=== PATIENT | female | born 1945 ===

== ENCOUNTER 2016-07-24 06:05 | Day surgery (SDC) | payer MEDICARE ==
[2016-07-10 10:07] VITALS: BMI 25.4
[2016-07-24] MEDS ORDERED: Bupivacaine 0.5% Inj(30mL) ONE (07:33)
[2016-07-24] MEDS ORDERED: Lidocaine 1% Inj (20ml) ONE (07:33)
[2016-07-24] MEDS ORDERED: Propofol 10 mg/ml Inj (20 ML) ONE (07:47)
[2016-07-24] MEDS ORDERED: Midazolam 2 MG/2 ML VIAL ONE (07:47)
[2016-07-24] MEDS ORDERED: Lactated Ringer's 1,000 ML IV SCH (08:34)
[2016-07-24] MEDS ORDERED: Oxycodone/Acetaminophen 5/325 mg Tab PO PRN (08:38)
--- NOTE | 2016-07-24 08:42 | PCM.SURG1 ---
Surgeon's Initial Post Op Note - Surgeon's Notes Surgeon: Dr. Mora Assistant Art Director: Dr. Contreras PGY1 Type of Anesthesia: IV Sedation Pre-Operative Diagnosis: right breast skin lesion Operative Findings: see dictation; 3.5x1cm excision of R breast skin lesion Post-Operative Diagnosis: same Operation Performed: Right breast skin lesion excision Specimen/Specimens Removed: Right breast skin lesion Estimated Blood Loss: EBL {In ML}: 5 Blood Products Given: N/A Drains Used: No Drains Post-Op Condition: Good Date of Surgery/Procedure: 07/24/16 Time of Surgery/Procedure: 07:50
[2016-07-24 09:41] VITALS: RESP 16
--- NOTE | 2016-07-24 09:47 | OP ---
PROCEDURE DATE: 07/24/2016 PREOPERATIVE DIAGNOSIS: Right breast skin lesion. POSTOPERATIVE DIAGNOSIS: Right breast skin lesion. PROCEDURE PERFORMED: Excision of right breast lesion. SURGEON: Dr. Mora. PACKAGING MECHANIC: Dr. Contreras. ANESTHESIOLOGIST: Dr. Mensah. ANESTHESIA: MAC and local anesthesia. ESTIMATED BLOOD LOSS: Minimal. SPECIMEN: Right breast skin lesion. INDICATION: The patient is a 70-year-old female with history of an infected wound on the right breas t, which subsequently healed and re-opened again at about 3 months period of time. At this point, a decision was made to proceed with excision of the entire lesion with the underlying tissue. DESCRIPTION OF PROCEDURE: The patient was brought to the operating room and placed on the operating table in supine position. The patient was connected to EKG, blood pressure and pulse oximeter monito rs. The patient then underwent general MAC anesthesia, was prepped and draped in usual sterile fashi on. First, a standard timeout procedure took place and everybody in the room agreed to the patient's iden tity, diagnosis and procedure to be performed. Using lidocaine mixed with Marcaine, the area of the incision was infiltrated and careful incision wa s made around the lesion. The lesion measured about 3.8 cm x 1.5 cm. Once the entire lesion was inc ised around it, the wound was carried through subcutaneous fat down to the breast tissue in order to excise the underlying fat. Once this was done, the wound was copiously irrigated. All the bleeding points were cauterized and the wound was closed in layers using 3-0 Vicryl for deep dermal layer and 4-0 Monocryl for skin. Sterile Dermabond dressing was applied to the wound. The patient tolerated t he procedure well and there were no complications. The patient was awakened and transferred to the ecovery room for further observation. Andrea Mora MD cc: [id number] TT: 07/24/2016 09:46:37 jn
[2016-07-24 10:00] VITALS: BP 130/75; PULSE 75; TEMP 98.1; O2SAT 97
== END 2016-07-24 10:15 | disposition home or self-care (01) ==
LOC: SDS 06:05
PROVIDERS: ATTEND General Practice
DX: L90.5 Scar conditions and fibrosis of skin (principal); I10 Essential (primary) hypertension
CPT/HCPCS: 11404; 88305; J0690; J2001; J2250; J2704; J3010; J7120 ×2

== ENCOUNTER 2017-08-20 14:23 | Emergency (ER) | payer MEDICARE ==
[2017-08-20 14:47] VITALS: BMI 26.2
[2017-08-20] MEDS ORDERED: DiphenhydrAMINE 50 mg/ml Inj IVP STA (14:50)
[2017-08-20] MEDS ORDERED: Sodium Chloride 0.9% 1,000 ML IV ONE (14:50)
[2017-08-20 14:55] VITALS: RESP 18; TEMP 98.2
[2017-08-20 15:28] LABS: BASO # 0.04 K/mm3 (0.0-2.0); BASO % 0.6 % (0.0-3.0); EOS # 0.1 (0.0-0.7); EOS % 2.2 % (1.5-5.0); GRAN # 3.89 (1.4-6.5); HEMOGLOBIN 14.4 g/dL (12.0-16.0); LYMPH # 1.9 (1.2-3.4); LYMPH % 29.6 % (22.0-35.0); MEAN CELL VOLUME 89.7 fl (80.0-105.0); MEAN CORPUSCULAR HEMOGLOBIN 30.9 pg (25.0-35.0); MEAN CORPUSCULAR HGB CONC 34.4 g/dl (31.0-37.0); MEAN PLATELET VOLUME 9.7 fl (7.0-11.0); MONO # 0.4 (0.1-0.6); MONO % 5.6 % (1.0-6.0); RBC 4.66 10^6/uL (3.5-6.1); RED CELL DISTRIBUTION WIDTH 12.5 % (11.5-14.5); WHITE BLOOD COUNT 6.3 10^3/ul (4.5-11.0)
[2017-08-20 15:41] LABS: ALB/GLOB RATIO 1.4 (1.1-1.8); ALBUMIN 4.6 g/dL (3.0-4.8); ALT/SGPT 54 U/L (7-56); AST/SGOT 37 U/L (14-36); BLOOD UREA NITROGEN 14 mg/dL (7-21); CALCIUM 9.8 mg/dL (8.4-10.5); GFR AFRICAN-AMERICAN > 60; GFR NON-AFRICAN AMERICAN 55; HDL CHOLESTEROL 41 mg/dL (29-60)
[2017-08-20 15:52] LABS: LDL CHOLESTEROL 94 mg/dL (0-129); TROPONIN I < 0.01 ng/mL
[2017-08-20 15:53] LABS: INR 0.94 (0.93-1.08); PARTIAL THROMBOPLASTIN TIME 27.1 Seconds (25.1-36.5); PROTHROMBIN TIME 10.7 SECONDS (9.4-12.5)
--- NOTE | 2017-08-20 16:39 | ED PDOC ---
Arrival/HPI - General Chief Complaint: Headache Time Seen by Provider: 08/20/17 14:28 Historian: Patient - History of Present Illness Narrative History of Present Illness (Text): 08/20/17 17:11 71yo female with past medical history of hypercholestrol, hypertension who present with complaint of right sided headache x 3days. Notes that the pain is radiating from her neck to her head. Describes the headache as :buzzing in her head". Reports history of this headache in the past. States she was seen by a Neurologist then and told after exam that is unknown cause. Denies nuchal ridgity, focal weakness, visual changes, photophobia, nausea, vomiting, dizziness, nausea, vomiting, chest pain, fever,chills, trauma, any other complaint. Past Medical History - Provider Review Nursing Documentation Reviewed: Yes - Infectious Disease Hx of Infectious Diseases: None - Cardiac Hx Hypertension: Yes Hx Pacemaker: No - Neurological Hx Paralysis: No - Hematological/Oncological Hx Blood Transfusions: No - Musculoskeletal/Rheumatological Hx Musculoskeletal Disorders: Yes (OSTEOPENIA) - Psychiatric Hx Substance Use: No - Surgical History Other/Comment: L & R breast cyst/ abscess - Anesthesia Hx Anesthesia: Yes Hx Anesthesia Reactions: No Hx Malignant Hyperthermia: No Family/Social History - Physician Review Nursing Documentation Reviewed: Yes Family/Social History: Unknown Family HX Smoking Status: Never Smoked Hx Alcohol Use: No Hx Substance Use: No Allergies/Home Meds Allergies/Adverse Reactions: Allergies No Known Allergies Allergy (Unverified 07/01/13 10:51) Home Medications: Home Meds Medication Instructions Recorded Confirmed Calcium Carbonate [Super Calcium] 600 mg PO BID 07/10/16 08/20/17 Cholecalciferol (Vitamin D3) 2,000 unit PO DAILY 07/10/16 08/20/17 [Vitamin D3] Clonazepam [Klonopin] 1 mg PO HS 07/10/16 08/20/17 Glucosamine Sulfate Dipot Chlr 1,200 mg PO DAILY 07/10/16 08/20/17 [Glucosamine] Lisinopril [Zestril] 10 mg PO DAILY 07/10/16 08/20/17 Multivitamin/Iron/Folic Acid 1 tab PO DAILY 07/10/16 08/20/17 [Centrum] Rosuvastatin Calcium [Crestor] 10 mg PO QPM 07/10/16 08/20/17 Ultram 1 tab PO Q6H PRN 07/24/16 08/20/17 Review of Systems - Physician Review All systems were reviewed & negative as marked: Yes - Review of Systems Constitutional: Normal Eyes: Normal ENT: Normal Respiratory: Normal Cardiovascular: Normal Gastrointestinal: Normal Genitourinary Female: Normal Musculoskeletal: Neck Pain Skin: Normal Neurological: Headache. absent: Dizziness, Focal Weakness, Gait Changes, Speech Changes, Facial Droop Endocrine: Normal Hemo/Lymphatic: Normal Psychiatric: Normal Physical Exam Vital Signs Reviewed: Yes Vital Signs Temp Pulse Resp BP Pulse Ox 08/20/17 17:54 78 18 147/87 95 08/20/17 16:30 77 18 154/92 H 96 08/20/17 14:24 98.2 F 84 18 166/98 H 95 Temperature: Afebrile Blood Pressure: Normal Pulse: Regular Respiratory Rate: Normal Appearance: Positive for: Well-Appearing, Non-Toxic, Comfortable Pain Distress: None Mental Status: Positive for: Alert and Oriented X 3 - Systems Exam Head: Present: Atraumatic, Normocephalic Pupils: Present: PERRL Extroacular Muscles: Present: EOMI Conjunctiva: Present: Normal Ears: Present: Normal, NORMAL TM. No: Erythema, TM Bulging Mouth: Present: Moist Mucous Membranes Neck: Present: Normal Range of Motion, Paraspinal Tenderness (OVer right trapezius muscle). No: Meningeal Signs, MIDLINE TENDERNESS Respiratory/Chest: Present: Clear to Auscultation, Good Air Exchange. No: Respiratory Distress, Accessory Muscle Use Cardiovascular: Present: Regular Rate and Rhythm, Normal S1, S2. No: Murmurs Abdomen: No: Tenderness, Distention, Peritoneal Signs Back: Present: Normal Inspection Upper Extremity: Present: Normal Inspection. No: Cyanosis, Edema Lower Extremity: Present: Normal Inspection. No: Edema Neurological: Present: GCS=15, CN II-XII Intact, Speech Normal, Motor Func Grossly Intact, Normal Sensory Function, Normal Cerebellar Funct, Norm Deep Tendon Reflexes, Gait Normal, Memory Normal, Normal 2Pt Descrimination, Other ( No focal neurological deficit) Skin: Present: Warm, Dry, Normal Color. No: Rashes Psychiatric: Present: Alert, Oriented x 3, Normal Insight, Normal Concentration Medical Decision Making ED Course and Treatment: 08/20/17 19:55 PT in emergency department for stated history. She had no nuchal ridigity in emergency department . She was neurological intact. Ambulatory. Her lab was unremarkable with the exception of the elevated cholesterol/ triglyceride. Pt is on medication secondary to her history of HCL Head CT - Negative Pt was treated with Benadryl, Tylenol and Valium in emergency department . On re evaluation she notes that her symptoms resolved secondary to the medication. She was smiling. She was DC home with Valium for the neck pain and fioricet for her headache. She was referred to her PMD/Neuro. - Lab Interpretations Lab Results: 08/20/17 15:22 08/20/17 15:22 Lab Results 08/20/17 15:22: Sodium 145, Potassium 4.3, Chloride 107, Carbon Dioxide 25, Anion Gap 17, BUN 14, Creatinine 1.0, Est GFR ( Amer) > 60, Est GFR (Non- Af Amer) 55, Random Glucose 117 H, Calcium 9.8, Total Bilirubin 0.9, AST 37 H, ALT 54, Alkaline Phosphatase 104, Lactate Dehydrogenase 594, Total Creatine Kinase 73, Troponin I < 0.01, Total Protein 8.0, Albumin 4.6, Globulin 3.4, Albumin/Globulin Ratio 1.4, Triglycerides 485 H, Cholesterol 278 H, LDL Cholesterol Direct 94, HDL Cholesterol 41 08/20/17 15:22: PT 10.7, INR 0.94, APTT 27.1 08/20/17 15:22: WBC 6.3, RBC 4.66, Hgb 14.4, Hct 41.8, MCV 89.7, MCH 30.9, MCHC 34.4, RDW 12.5, Plt Count 287, MPV 9.7, Gran % 62.0, Lymph % (Auto) 29.6, Cooke % (Auto) 5.6, Eos % (Auto) 2.2, Baso % (Auto) 0.6, Gran # 3.89, Lymph # (Auto) 1.9, [place]oke # (Auto) 0.4, Eos # (Auto) 0.1, Baso # (Auto) 0.04 - RAD Interpretation Radiology Orders: 08/20/17 14:51 HEAD W/O CONTRAST [CT] Stat - Medication Orders Current Medication Orders: Discontinued Medications Acetaminophen (Tylenol 325mg Tab) 975 mg PO STAT STA Stop: 08/20/17 14:52 Last Admin: 08/20/17 15:16 Dose: 975 mg MAR Pain/Vitals Document 08/20/17 15:16 GMD (Rec: 08/20/17 15:16 GMD [id number]) Pain Reassessment Is This A Pain ReAssessment? No Re-Assess: MAR Pain/Vitals Document 08/20/17 16:16 GMD (Rec: 08/20/17 16:41 GMD [id number]) Pain Reassessment Is This A Pain ReAssessment? Yes Presence of Pain Presence of Pain Yes Pain Scale Used Pain Scale Used Numeric Location Intensity 6 Diazepam (Valium) 5 mg PO ONCE ONE PRN Reason: Protocol Stop: 08/20/17 16:39 Last Admin: 08/20/17 16:45 Dose: 5 mg Diphenhydramine HCl (Benadryl) 25 mg IVP STAT STA Stop: 08/20/17 14:51 Last Admin: 08/20/17 15:16 Dose: 25 mg IVP Administration Document 08/20/17 15:16 GMD (Rec: 08/20/17 15:16 GMD [id number]) Charges for Administration # of IVP Administrations 1 Sodium Chloride (Sodium Chloride 0.9%) 1,000 mls @ 250 mls/hr IV .Q4H ONE Stop: 08/20/17 18:49 Last Admin: 08/20/17 15:16 Dose: 250 mls/hr eMAR Start Stop Document 08/20/17 15:16 GMD (Rec: 08/20/17 15:17 GMD [id number]) Intravenous Solution Start Date 08/20/17 Start Time 15:16 End Date 08/20/17 End time 19:16 Total Infusion Time 240 Disposition/Present on Arrival - Present on Arrival Any Indicators Present on Arrival: No History of DVT/PE: No History of Uncontrolled Diabetes: No Urinary Catheter: No History of Decub. Ulcer: No History Surgical Site Infection Following: None - Disposition Have Diagnosis and Disposition been Completed?: Yes Diagnosis: Headache, Neck pain Disposition: HOME/ ROUTINE Disposition Time: 17:45 Patient Plan: Discharge Condition: STABLE Discharge Instructions (ExitCare): Headache, Adult, Neck Pain Additional Instructions: Follow up with your Doctor/Neurologist Return to emergency department for any new or worsening symptoms Prescriptions: Acetaminophen/Butalbital/Caf [Fioricet] 1 tab PO Q4 #15 tab Diazepam [Valium] 2 mg PO BID #10 tablet Referrals: Salena Solorzano MD [Primary Care Provider] - Follow up with primary Forms: [employer] (German)
--- NOTE | 2017-08-20 16:54 | CT ---
PROCEDURE: CT HEAD WITHOUT CONTRAST. HISTORY: headache COMPARISON: None available. TECHNIQUE: Axial computed tomography images were obtained through the head/brain without intravenous contrast. Radiation dose: Total exam DLP = 764.65 mGy-cm. This CT exam was performed using one or more of the following dose reduction techniques: Automated exposure control, adjustment of the mA and/or kV according to patient size, and/or use of iterative reconstruction technique. FINDINGS: HEMORRHAGE: No intracranial hemorrhage. BRAIN: Normal alba-white matter differentiation and density are appreciated throughout the cerebrum and cerebellum with the brainstem appearing unremarkable as well. There is no mass effect. There is no suspicious extra-axial fluid collection and the midline brain anatomy appears diffusely unremarkable. VENTRICLES: Unremarkable. No hydrocephalus. CALVARIUM: Unremarkable. PARANASAL SINUSES: Unremarkable as visualized. No significant inflammatory changes. MASTOID AIR CELLS: Unremarkable as visualized. No inflammatory changes. OTHER FINDINGS: None. IMPRESSION: Unremarkable noncontrast head CT examination.
[2017-08-20 17:54] VITALS: BP 147/87; PULSE 78; O2SAT 95
== END 2017-08-20 18:02 | disposition home or self-care (01) ==
LOC: ED 14:23
DX: M54.2 Cervicalgia (principal); R51 Headache; I10 Essential (primary) hypertension; E78.00 Pure hypercholesterolemia, unspecified
CPT/HCPCS: 70450; 80053; 80061; 82550; 83615; 84484; 85025; 85610; 85730; 96361; 96374; 99285; J1200; J7030

== ENCOUNTER 2017-12-19 12:45 | Observation (INO) | payer MEDICARE ==
[2017-12-19 13:19] VITALS: BMI 26.4
--- NOTE | 2017-12-19 13:33 | ED PDOC ---
Arrival/HPI - General Chief Complaint: Shortness Of Breath Time Seen by Provider: 12/19/17 13:15 Historian: Patient, Spouse - History of Present Illness Narrative History of Present Illness (Text): 12/19/17 14:01 A 72 year old female, whose past medical history includes hypertension and hyperlipidemia, presents to the emergency department complaining of trouble breathing and palpitations since 4 days ago. Patient reports she went to her doctor's office earlier today where her measured heart rate was 125 bpm and she was urged to go to the emergency room. Patient reports experiencing pressure on her chest and shortness of breath. Patient denies taking any medication for symptoms. Patient reports taking nortriptyline, hydrochlorothiazide, crestor, lisinopril, and lorazepam. Patient notes no history of blood clots and has a family history of heart problems from her father's side. Patient denies any fever, chills, chest pain, diarrhea, nausea, vomiting, urinary symptoms, back pain, neck pain, headache, dizziness, or any other complaints. PMD: Dr. Lee Time/Duration: Other (4 days ) Symptom Onset: Gradual Symptom Course: Unchanged Quality: Pressure Activities at Onset: Light Context: Home Past Medical History - Provider Review Nursing Documentation Reviewed: Yes - Infectious Disease Hx of Infectious Diseases: None - Cardiac Hx Cardiac Disorders: Yes Hx Hypertension: Yes - Pulmonary Hx Respiratory Disorders: No - Neurological Hx Neurological Disorder: No - HEENT Hx HEENT Disorder: No - Renal Hx Renal Disorder: No - Endocrine/Metabolic Hx Endocrine Disorders: No - Hematological/Oncological Hx Blood Disorders: No - Integumentary Hx Dermatological Disorder: No - Musculoskeletal/Rheumatological Hx Musculoskeletal Disorders: Yes (OSTEOPENIA) - Gastrointestinal Hx Gastrointestinal Disorders: No - Genitourinary/Gynecological Hx Genitourinary Disorders: No - Psychiatric Hx Psychophysiologic Disorder: No Hx Substance Use: No - Surgical History Other/Comment: L & R breast cyst/ abscess - Anesthesia Hx Anesthesia: Yes Hx Anesthesia Reactions: No Hx Malignant Hyperthermia: No Family/Social History - Physician Review Nursing Documentation Reviewed: Yes Family/Social History: Unknown Family HX Smoking Status: Never Smoked Hx Alcohol Use: No Hx Substance Use: No Allergies/Home Meds Allergies/Adverse Reactions: Allergies No Known Allergies Allergy (Unverified 07/01/13 10:51) Home Medications: Home Meds Medication Instructions Recorded Confirmed Calcium Carbonate [Super Calcium] 600 mg PO BID 07/10/16 12/19/17 Cholecalciferol (Vitamin D3) 2,000 unit PO DAILY 07/10/16 12/19/17 [Vitamin D3] Clonazepam [Klonopin] 1 mg PO HS 07/10/16 12/19/17 Glucosamine Sulfate Dipot Chlr 1,200 mg PO DAILY 07/10/16 12/19/17 [Glucosamine] Lisinopril [Zestril] 20 mg PO DAILY 07/10/16 12/19/17 Multivitamin/Iron/Folic Acid 1 tab PO DAILY 07/10/16 12/19/17 [Centrum] Rosuvastatin Calcium [Crestor] 10 mg PO QPM 07/10/16 12/19/17 Hydrochlorothiazide [Microzide] 12.5 mg PO DAILY 12/19/17 12/19/17 Nortriptyline [Pamelor] 20 mg PO HS 12/19/17 12/19/17 Review of Systems - Physician Review All systems were reviewed & negative as marked: Yes - Review of Systems Constitutional: absent: Fevers, Night Sweats Respiratory: SOB Cardiovascular: Palpitations. absent: Chest Pain Gastrointestinal: absent: Diarrhea, Nausea, Vomiting Genitourinary Female: absent: Urine Output Changes Musculoskeletal: absent: Back Pain, Neck Pain Neurological: absent: Headache, Dizziness Physical Exam Vital Signs Reviewed: Yes Vital Signs Temp Pulse Resp BP Pulse Ox 12/19/17 13:18 98.2 F 110 H 16 139/97 H 97 Temperature: Afebrile Blood Pressure: Hypertensive Pulse: Tachycardic Respiratory Rate: Normal Appearance: Positive for: Well-Appearing, Non-Toxic, Comfortable Pain Distress: None Mental Status: Positive for: Alert and Oriented X 3 - Systems Exam Head: Present: Atraumatic, Normocephalic Pupils: Present: PERRL Extroacular Muscles: Present: EOMI Conjunctiva: Present: Normal Mouth: Present: Moist Mucous Membranes Neck: Present: Normal Range of Motion Respiratory/Chest: Present: Clear to Auscultation, Good Air Exchange. No: Respiratory Distress, Accessory Muscle Use Cardiovascular: Present: Regular Rate and Rhythm, Normal S1, S2. No: Murmurs Abdomen: No: Tenderness, Distention, Peritoneal Signs Back: Present: Normal Inspection Upper Extremity: Present: Normal Inspection. No: Cyanosis, Edema Lower Extremity: Present: Normal Inspection. No: Edema Neurological: Present: GCS=15, CN II-XII Intact, Speech Normal Skin: Present: Warm, Dry, Normal Color. No: Rashes Psychiatric: Present: Alert, Oriented x 3, Normal Insight, Normal Concentration Medical Decision Making ED Course and Treatment: 12/19/17 13:30 Impression: 72 year old female presenting to the emergency department complaining of palpitations. Plan: -- EKG -- Labs -- CBC -- D Dimer -- Chest X-ray -- Reassess and disposition Prior Visits: Notes and results from previous visits were reviewed. Patient was last seen in the emergency department on 08/20/17 for right sided headache and was discharged when symptoms improved. Progress Notes: EKG: Ordered, reviewed, and independently interpreted the EKG. Rate : 99 BPM Rhythm : NSR Interpretation : No stemi, no [id number], Flipped T wave lead 3. 12/19/17 15:36 Labs largely unremarkable: low pretest wells- dimer negative given CP and palpitations, moderate heart score will likely require obs for echo / stress 12/19/17 15:44 Procedure: Chest X-ray Impression: No acute infiltrate. Dictator: Jayme Muse MD 12/19/17 16:00 appreciate consult w/ Chris Dewitt To be admitted to her service for obs, further eval. 12/19/17 17:10 - Scribe Statement The provider has reviewed the documentation as recorded by the Zoie Weaver All medical record entries made by the Scribe were at my direction and personally dictated by me. I have reviewed the chart and agree that the record accurately reflects my personal performance of the history, physical exam, medical decision making, and the department course for this patient. I have also personally directed, reviewed, and agree with the discharge instructions and disposition. Disposition/Present on Arrival - Present on Arrival Any Indicators Present on Arrival: No History of DVT/PE: No History of Uncontrolled Diabetes: No Urinary Catheter: No History of Decub. Ulcer: No History Surgical Site Infection Following: None - Disposition Have Diagnosis and Disposition been Completed?: Yes Diagnosis: Palpitations Disposition: HOSPITALIZED Disposition Time: 16:00 Patient Problems: Current Active Problems Problem Status Onset Palpitations Acute Condition: GOOD
[2017-12-19 15:01] LABS: BASO # 0.05 K/mm3 (0.0-2.0); BASO % 0.6 % (0.0-3.0); EOS # 0.2 (0.0-0.7); EOS % 2.3 % (1.5-5.0); GRAN # 5.23 (1.4-6.5); GRAN % 62.1 % (50.0-68.0); HEMOGLOBIN 15.9 g/dL (12.0-16.0); LYMPH # 2.3 (1.2-3.4); LYMPH % 27.4 % (22.0-35.0); MEAN CELL VOLUME 91.1 fl (80.0-105.0); MEAN CORPUSCULAR HEMOGLOBIN 30.9 pg (25.0-35.0); MEAN PLATELET VOLUME 10.1 fl (7.0-11.0); MONO # 0.6 (0.1-0.6); MONO % 7.6 % (1.0-6.0); RBC 5.14 10^6/uL (3.5-6.1); RED CELL DISTRIBUTION WIDTH 12.3 % (11.5-14.5); WHITE BLOOD COUNT 8.4 10^3/uL (4.5-11.0)
[2017-12-19 15:04] LABS: ALB/GLOB RATIO 1.3 (1.1-1.8); ALBUMIN 4.7 g/dL (3.0-4.8); ALT/SGPT 37 U/L (7-56); AST/SGOT 35 U/L (14-36); BLOOD UREA NITROGEN 17 mg/dL (7-21); CALCIUM 10.1 mg/dL (8.4-10.5); GFR NON-AFRICAN AMERICAN > 60; LIPASE 104 U/L (23-300)
[2017-12-19 15:16] LABS: B-TYPE NATRIURETIC PEPTIDE 41.6 pg/mL (0-450); TROPONIN I < 0.01 ng/mL
--- NOTE | 2017-12-19 15:31 | RAD ---
Date of service: 12/19/2017 HISTORY: palpitations COMPARISON: 07/10/2016 TECHNIQUE: Chest PA and lateral FINDINGS: LUNGS: No active pulmonary disease. Calcified granuloma in left upper lobe, unchanged. PLEURA: No significant pleural effusion identified. No pneumothorax apparent. CARDIOVASCULAR: No aortic atherosclerotic calcification present. Normal heart size. Incidentally noted right aortic arch. No pulmonary vascular congestion. OSSEOUS STRUCTURES: No significant abnormalities. VISUALIZED UPPER ABDOMEN: Normal. OTHER FINDINGS: None. IMPRESSION: No acute infiltrate.
--- NOTE | 2017-12-19 17:15 | CP.PCM.HP ---
<Donato Maynard - Last Filed: 12/19/17 17:01> History of Present Illness - History of Present Illness History of Present Illness: CC: Dyspnea, palpitations Patient is a 72 yo F with PMH of HTN, HLD, migraines, and osteoarthritis [place] [facility] 4 day history of dyspnea and palpitations. Patient states that palpitations are constant, pressure feeling, located substernally, but does not radiate. Patient denies chest pain. Patient went to her PMD today who found that her HR was in the 120's and along with her palpitations advised her to proceed to the ED. Patient was also complaining of dyspnea at rest. Patient states that she has had a cardiac stress test in the past, but is unable to do an exercise stress test due to her arthritis. Patient denies CP, n/v/d, abdominal pain, fever, chills, VARGHESE, dysuria, hematuria, constipation, or dizziness. PMD: Potoczek PMH: HTN, HLD, migraines, osteoarthritis Surg: Left breast cyst removal, right axillary abscess I&D All: NKDA SH: Admits to social EtOH use; Denied tobacco and illicit drug use FHx: Father , AAA, open heart surgery at 72; Mother alive with DM Medications: - Crestor 10 mg daily - Lisinopril 20 mg daily - HCTZ 12.5 mg daily - Nortryptilline 20 mg HS - Klonopin 1 mg HS prn for sleep - Centrum - Glucosamine - Vitamin D3 2000 units daily - CaCO3 600 mg BID Present on Admission - Present on Admission Any Indicators Present on Admission: No Review of Systems - Review of Systems All systems: reviewed and no additional remarkable complaints except (12 point ROS reviewed and is negative other than what is stated in HPI.) Past Patient History - Infectious Disease Hx of Infectious Diseases: None - Past Social History Smoking Status: Never Smoked - CARDIAC Hx Cardiac Disorders: Yes Hx Hypertension: Yes - PULMONARY Hx Respiratory Disorders: No - NEUROLOGICAL Hx Neurological Disorder: No - HEENT Hx HEENT Problems: No - RENAL Hx Chronic Kidney Disease: No - ENDOCRINE/METABOLIC Hx Endocrine Disorders: No - HEMATOLOGICAL/ONCOLOGICAL Hx Blood Disorders: No - INTEGUMENTARY Hx Dermatological Problems: No - MUSCULOSKELETAL/RHEUMATOLOGICAL Hx Musculoskeletal Disorders: Yes (OSTEOPENIA) - GASTROINTESTINAL Hx Gastrointestinal Disorders: No - GENITOURINARY/GYNECOLOGICAL Hx Genitourinary Disorders: No - PSYCHIATRIC Hx Psychophysiologic Disorder: No Hx Substance Use: No - SURGICAL HISTORY Other/Comment: L & R breast cyst/ abscess - ANESTHESIA Hx Anesthesia: Yes Hx Anesthesia Reactions: No Hx Malignant Hyperthermia: No Meds Allergies/Adverse Reactions: Allergies Allergy/AdvReac Type Severity Reaction Status Date / Time No Known Allergies Allergy Unverified 07/01/13 10:51 Physical Exam - Constitutional Appears: No Acute Distress - Head Exam Head Exam: NORMAL INSPECTION - Eye Exam Eye Exam: Normal appearance, PERRL Pupil Exam: NORMAL ACCOMODATION - ENT Exam ENT Exam: Mucous Membranes Moist, Normal Exam - Neck Exam Neck exam: Positive for: Normal Inspection - Respiratory Exam Respiratory Exam: Clear to Auscultation Bilateral. absent: Rales, Rhonchi, Wheezes - Cardiovascular Exam Cardiovascular Exam: Tachycardia, REGULAR RHYTHM, +S1, +S2. absent: Gallop, Rubs, Systolic Murmur - GI/Abdominal Exam GI & Abdominal Exam: Soft. absent: Distended, Guarding, Rebound, Tenderness - Extremities Exam Extremities exam: Positive for: normal inspection - Back Exam Back exam: NORMAL INSPECTION - Neurological Exam Neurological exam: Alert, CN II-XII Intact, Oriented x3 - Psychiatric Exam Psychiatric exam: Normal Affect, Normal Mood - Skin Skin Exam: Dry, Intact, Normal Color, Warm Results - Vital Signs Recent Vital Signs: Last Vital Signs Temp 98.2 F 12/19/17 13:18 Pulse 110 H 12/19/17 13:18 Resp 16 12/19/17 13:45 BP 139/97 H 12/19/17 13:18 Pulse Ox 97 12/19/17 13:18 - Labs Result Diagrams: 12/19/17 14:45 12/19/17 14:45 Labs: Laboratory Results - last 24 hr 12/19/17 12/19/17 12/19/17 14:45 14:45 14:45 WBC 8.4 D RBC 5.14 Hgb 15.9 Hct 46.8 MCV 91.1 MCH 30.9 MCHC 34.0 RDW 12.3 Plt Count 305 MPV 10.1 Gran % 62.1 Lymph % (Auto) 27.4 Chaves % (Auto) 7.6 H Eos % (Auto) 2.3 Baso % (Auto) 0.6 Gran # 5.23 Lymph # (Auto) 2.3 Chaves # (Auto) 0.6 Eos # (Auto) 0.2 Baso # (Auto) 0.05 D-Dimer, Quantitative < 200 Sodium 142 Potassium 3.8 Chloride 101 Carbon Dioxide 28 Anion Gap 17 BUN 17 Creatinine 0.9 Est GFR ( Amer) > 60 Est GFR (Non-Af Amer) > 60 Random Glucose 109 Calcium 10.1 Magnesium 2.2 Total Bilirubin 1.2 AST 35 ALT 37 Alkaline Phosphatase 107 Troponin I < 0.01 NT-Pro-B Natriuret Pep 41.6 Total Protein 8.4 H Albumin 4.7 Globulin 3.7 Albumin/Globulin Ratio 1.3 Lipase 104 TSH 3rd Generation 12/19/17 14:45 WBC RBC Hgb Hct MCV MCH MCHC RDW Plt Count MPV Gran % Lymph % (Auto) [place] % (Auto) Eos % (Auto) Baso % (Auto) Gran # Lymph # (Auto) [place] # (Auto) Eos # (Auto) Baso # (Auto) D-Dimer, Quantitative Sodium Potassium Chloride Carbon Dioxide Anion Gap BUN Creatinine Est GFR ( Amer) Est GFR (Non-Af Amer) Random Glucose Calcium Magnesium Total Bilirubin AST ALT Alkaline Phosphatase Troponin I NT-Pro-B Natriuret Pep Total Protein Albumin Globulin Albumin/Globulin Ratio Lipase TSH 3rd Generation 1.47 Assessment & Plan - Assessment and Plan (Free Text) Assessment: 72 yo F with PMH of HTN, HLD, arthritis, and migraines [place] [facility] [place] for evaluation and treatment for palpitations/tachycardia and to rule out ACS. Plan: 1. Palpitations 2. Tachycardia 3. R/o ACS - EKG showed NSR, rate 99; morning EKG ordered - Troponin negative x1; will trend x2 - CXR negative - D-dimer negative - TSH WNL - Free T4 and T3 ordered - Cardio consulted 4. HTN - Home medications held per Cardio - Cont to monitor 5. HLD - Cont home medication 6. H/O Migraines - Cont Nortriptylline 7. H/O Insomnia - Cont Klonopin PRN GI/DVT PPx - Not indicated at this time Patient seen and discussed in detail with attending, Dr. Fields. Dex Maynard, PGY2 <Matilde Fields R - Last Filed: 12/19/17 18:19> Results - Vital Signs Recent Vital Signs: Last Vital Signs Temp 98.2 F 12/19/17 13:18 Pulse 120 H 12/19/17 17:25 Resp 18 12/19/17 17:25 BP 134/83 12/19/17 17:25 Pulse Ox 97 12/19/17 17:25 - Labs Result Diagrams: 12/19/17 14:45 12/19/17 14:45 Labs: Laboratory Results - last 24 hr 12/19/17 12/19/17 12/19/17 14:45 14:45 14:45 WBC 8.4 D RBC 5.14 Hgb 15.9 Hct 46.8 MCV 91.1 MCH 30.9 MCHC 34.0 RDW 12.3 Plt Count 305 MPV 10.1 Gran % 62.1 Lymph % (Auto) 27.4 Chaves % (Auto) 7.6 H Eos % (Auto) 2.3 Baso % (Auto) 0.6 Gran # 5.23 Lymph # (Auto) 2.3 Chaves # (Auto) 0.6 Eos # (Auto) 0.2 Baso # (Auto) 0.05 D-Dimer, Quantitative < 200 Sodium 142 Potassium 3.8 Chloride 101 Carbon Dioxide 28 Anion Gap 17 BUN 17 Creatinine 0.9 Est GFR ( Amer) > 60 Est GFR (Non-Af Amer) > 60 Random Glucose 109 Calcium 10.1 Magnesium 2.2 Total Bilirubin 1.2 AST 35 ALT 37 Alkaline Phosphatase 107 Troponin I < 0.01 NT-Pro-B Natriuret Pep 41.6 Total Protein 8.4 H Albumin 4.7 Globulin 3.7 Albumin/Globulin Ratio 1.3 Lipase 104 Free T4 Total T3 TSH 3rd Generation 12/19/17 12/19/17 14:45 14:45 WBC RBC Hgb Hct MCV MCH MCHC RDW Plt Count MPV Gran % Lymph % (Auto) Chaves % (Auto) Eos % (Auto) Baso % (Auto) Gran # Lymph # (Auto) Chaves # (Auto) Eos # (Auto) Baso # (Auto) D-Dimer, Quantitative Sodium Potassium Chloride Carbon Dioxide Anion Gap BUN Creatinine Est GFR ( Amer) Est GFR (Non-Af Amer) Random Glucose Calcium Magnesium Total Bilirubin AST ALT Alkaline Phosphatase Troponin I NT-Pro-B Natriuret Pep Total Protein Albumin Globulin Albumin/Globulin Ratio Lipase Free T4 1.09 Total T3 1.15 TSH 3rd Generation 1.47 Attending/Attestation - Attestation I have personally seen and examined this patient.: Yes I have fully participated in the care of the patient.: Yes I have reviewed all pertinent clinical information: Yes Notes (Text): Patient seen and examined by me with resident at 4:30PM with resident 12/19/17. Case including HPI, physical exam, and assessment and plan discussed with resident. Agree with above with following additions/corrections. Patient is a 72-year-old female past medical history significant for hypertension, hyperlipidemia, arthritis, and migraine headaches that presented to the emergency room with 4 day history of palpitations and associated shortness of breath. Patient states that she was having difficulty with her b lood pressure approximately 1 month ago at which time her blood pressure medications were adjusted. She was started on hydrochlorothiazide at that time. He shouldn't states that on 12/15/2017 patient started to have a pressure-like feeling in the center of her chest. This does not radiate and has been constant since it started. She states that she also feels that she is having palpitations. She states that there is no pain in her chest. Patient states that she noticed that she was also having shortness of breath associated with this that seem to be worsened with walking. States that she went her primary care doctor today who found her heart rate to be in the 120s. She was advised by her primary care doctor to come into the emergency room. Patient is denying any chest pain. No nausea, vomiting, or abdominal pain. No diarrhea or constipation. No fevers or chills. No current headaches. No dizziness. No change in vision. No dysuria. Patient states that she does have low back pain but has been going on for a while now. Patient states she only drinks one cup of coffee in the morning and no other caffeine throughout the day. 12 point review of systems reviewed by me. See above HPI, all other systems are negative. Physical exam: General: Awake and alert sitting up in bed in no distress HEENT: Normocephalic atraumatic. Extra ocular muscles intact. Pupils equal and reactive. No scleral icterus. Oropharynx is pink and moist. No pharyngeal erythema or exudate appreciated. Neck is supple. Ears and nose externally unremarkable. Cardiovascular: Tachycardic S1, S2. No murmurs, rubs, or gallops appreciated Pulmonary: Normal respiratory effort. No rhonchi, rales, or wheezing appr eciated Gastrointestinal: Soft, nondistended. Nontender. Positive bowel sounds all 4 quadrants, no guarding. Musculoskeletal: Moves all extremities, no calf tenderness. No edema appreciated Central nervous system: AAOx3. CN2-12 grossly intact. 5/5 muscle strength all extremities. Dermatologic: Skin warm and dry. Assessment and plan: Patient is a 72-year-old female past medical history signif icant for hypertension, hyperlipidemia, arthritis, and migraine headaches that presented to the emergency room with 4 day history of palpitations and associated shortness of breath. 1. Palpitations and associated dyspnea. Sinus tachycardia. Chest pressure. First troponin within normal limits. Follow up serial troponins. D-dimer within normal limits. TSH within normal limits. Follow-up free T4 and T3. Placed on aspirin 81 mg daily. Cardiology consulted, follow-up recommendations. Monitor on telemetry. 2. Hypertension. Home lisinopril and hydrochlorothiazide held until patient seen by cardiology. Discussed with toolmaker helper, he will adjust medications. 3. Hyperlipidemia. Patient takes Crestor at home. Started on Lipitor here. 4. History of migraines. Continue home nortriptyline 20 mg at bedtime. 5. DVT prophylaxis. SCDs. 6. Patient is a full code Case was discussed in detail with the patient and toolmaker helper regarding current diagnosis and treatment plan. All questions answered.
[2017-12-19 17:47] LABS: FREE T4 1.09 ng/dL (0.78-2.19)
[2017-12-19 18:00] LABS: T3 1.15 ng/mL (0.97-1.69)
[2017-12-19] MEDS ORDERED: Pneumococcal 23-Valent Vaccine IM ONE (22:56)
[2017-12-19] MEDS ORDERED: Influenza Vaccine 60 mcg/0.5 mL SYR (4YR UP) IM ONE (22:56)
--- NOTE | 2017-12-20 00:21 | CON ---
DATE OF CONSULTATION: 12/19/2017 REASON FOR CONSULTATION: Followup palpitations, cardiac evaluation. BRIEF CLINICAL HISTORY: This is a 72-year-old female with a past medical history significant for hypertension, hyperlipidemia, migraine, osteoarthritis, being followed by Dr. Lee, was on lisinopril, recently he started hydrochlorothiazide, but the patient this morning woke up with palpitations, went to see Dr. Lee who suggested to come to the hospital. According to the patient, when she was in Rosa's office, her heart rate was 120. While the patient came to the emergency room, her heart rate was normal sinus rate of 98. Denies any chest pain, but complained of palpitations since morning and also headache, though the patient has a history of migraines. PAST MEDICAL HISTORY: Significant for hypertension, hyperlipidemia, osteoarthritis and migraines. PAST SURGICAL HISTORY: Significant for left breast cyst removed in 1997, right axillary abscess drained last year by Dr. Mora. FAMILY HISTORY: Noncontributory. SOCIAL HISTORY: Denies smoking. Denies any history of alcohol abuse. CURRENT MEDICATIONS: The patient is taking Crestor 10 mg daily, lisinopril 20 mg daily, hydrochlorothiazide 12.5 mg daily, nortriptyline for headache 20 mg p.o. h.s., Klonopin 1 mg p.o. h.s. p.r.n., multivitamin and glucosamine. REVIEW OF SYSTEMS: As per HPI. PHYSICAL EXAMINATION: VITAL SIGNS: Height of the patient 5 feet 1 inches, weight of the patient 140 pounds, body mass index 26.5 kg/m2. Temperature afebrile, heart rate 100, and blood pressure 139/96. HEENT: PERRLA. Extraocular muscles intact. NECK: Supple. No carotid bruit or thyromegaly. CHEST: Clear to auscultation. HEART: S1 and S2 regular. ABDOMEN: Soft. EXTREMITIES: Clubbing and cyanosis negative. LABORATORY DATA: Blood workup as follows: WBC 8.4, hemoglobin 15.9, hematocrit 46.8, platelet count 305. Chemistry shows sodium 142, potassium 3.8, chloride 108, carbon dioxide 28, anion gap of 17, BUN 17, creatinine 0.9. Troponin is 0.01, negative. EKG: Normal sinus and no acute ST-T changes noted. IMPRESSION: Sinus tachycardia, etiology not clear; hypertension; history of hyperlipidemia; rule out ischemia. RECOMMENDATIONS: Follow up CPK troponin. We will get an echo to rule out any structural heart disease and start low dose of beta alexander in addition to hydrochlorothiazide and lisinopril. If the patient remained troponin negative, we will possibly discharge and schedule a stress test as an outpatient. Discussed with the patient, discussed with patient's , and also discussed with Dr. Chris Fields. Thank you, Dr. Fields, for providing us the opportunity in taking care of this patient. Nikki Voss MD
[2017-12-20 04:28] LABS: ALB/GLOB RATIO 1.3 (1.1-1.8); ALT/SGPT 37 U/L (7-56); AST/SGOT 36 U/L (14-36); BLOOD UREA NITROGEN 17 mg/dL (7-21); CALCIUM 9.7 mg/dL (8.4-10.5); GFR NON-AFRICAN AMERICAN > 60; HDL CHOLESTEROL 38 mg/dL (29-60)
[2017-12-20 04:31] LABS: HEMOGLOBIN 14.6 g/dL (12.0-16.0); MEAN CORPUSCULAR HEMOGLOBIN 30.5 pg (25.0-35.0); MEAN CORPUSCULAR HGB CONC 33.5 g/dl (31.0-37.0); RBC 4.79 10^6/uL (3.5-6.1); RED CELL DISTRIBUTION WIDTH 12.7 % (11.5-14.5); WHITE BLOOD COUNT 7.7 10^3/uL (4.5-11.0)
[2017-12-20 04:32] LABS: MEAN PLATELET VOLUME 10.6 fl (7.0-11.0)
[2017-12-20 04:38] LABS: TROPONIN I < 0.01 ng/mL
[2017-12-20 04:39] LABS: LDL CHOLESTEROL 104 mg/dL (0-129)
[2017-12-20 09:33] VITALS: RESP 20; TEMP 97.9; O2SAT 94
[2017-12-20 10:00] VITALS: BP 106/75
--- NOTE | 2017-12-20 10:09 | CARD ---
APPROVED REPORT Date of service: 12/19/2017 EKG Measurement Heart [id number] <Conclusion> Sinus rhythm No change
--- NOTE | 2017-12-20 10:59 | CARD ---
APPROVED REPORT Date of service: 12/20/2017 EKG Measurement Heart [id number] <Conclusion> Normal sinus rhythm Normal ECG No change
[2017-12-20 14:42] VITALS: PULSE 84
--- NOTE | 2017-12-20 17:06 | CP.PCM.DIS ---
Provider - Provider Date of Admission: 12/19/17 16:34 Attending physician: Matilde Fields [facility] - Lab Results Lab Results: Most Recent Lab Values WBC 7.7 10^3/uL (4.5-11.0) 12/20/17 03:35 RBC 4.79 10^6/uL (3.5-6.1) 12/20/17 03:35 Hgb 14.6 g/dL (12.0-16.0) 12/20/17 03:35 Hct 43.6 % (36.0-48.0) 12/20/17 03:35 MCV 91.0 fl (80.0-105.0) 12/20/17 03:35 MCH 30.5 pg (25.0-35.0) 12/20/17 03:35 MCHC 33.5 g/dl (31.0-37.0) 12/20/17 03:35 RDW 12.7 % (11.5-14.5) 12/20/17 03:35 Plt Count 267 10^3/uL (120.0-450.0) 12/20/17 03:35 MPV 10.6 fl (7.0-11.0) 12/20/17 03:35 Gran % 62.1 % (50.0-68.0) 12/19/17 14:45 Lymph % (Auto) 27.4 % (22.0-35.0) 12/19/17 14:45 [place] % (Auto) 7.6 % (1.0-6.0) H 12/19/17 14:45 Eos % (Auto) 2.3 % (1.5-5.0) 12/19/17 14:45 Baso % (Auto) 0.6 % (0.0-3.0) 12/19/17 14:45 Gran # 5.23 (1.4-6.5) 12/19/17 14:45 Lymph # (Auto) 2.3 (1.2-3.4) 12/19/17 14:45 [place] # (Auto) 0.6 (0.1-0.6) 12/19/17 14:45 Eos # (Auto) 0.2 (0.0-0.7) 12/19/17 14:45 Baso # (Auto) 0.05 K/mm3 (0.0-2.0) 12/19/17 14:45 D-Dimer, Quantitative < 200 ng/mlDDU (0-243) 12/19/17 14:45 Sodium 139 mmol/L (132-148) 12/20/17 03:35 Potassium 4.0 mmol/L (3.6-5.0) 12/20/17 03:35 Chloride 104 mmol/L (98-107) 12/20/17 03:35 Carbon Dioxide 26 mmol/L (21-33) 12/20/17 03:35 Anion Gap 13 (10-20) 12/20/17 03:35 BUN 17 mg/dL (7-21) 12/20/17 03:35 Creatinine 0.9 mg/dl (0.7-1.2) 12/20/17 03:35 Est GFR ( Amer) > 60 12/20/17 03:35 Est GFR (Non-Af Amer) > 60 12/20/17 03:35 Random Glucose 97 mg/dL (70-110) 12/20/17 03:35 Calcium 9.7 mg/dL (8.4-10.5) 12/20/17 03:35 Phosphorus 4.1 mg/dL (2.5-4.5) 12/20/17 03:35 Magnesium 2.0 mg/dL (1.7-2.2) 12/20/17 03:35 Total Bilirubin 1.2 mg/dL (0.2-1.3) 12/20/17 03:35 AST 36 U/L (14-36) 12/20/17 03:35 ALT 37 U/L (7-56) 12/20/17 03:35 Alkaline Phosphatase 90 U/L (38-126) 12/20/17 03:35 Troponin I < 0.01 ng/mL 12/20/17 03:35 NT-Pro-B Natriuret Pep 41.6 pg/mL (0-450) 12/19/17 14:45 Total Protein 7.2 g/dL (5.8-8.3) 12/20/17 03:35 Albumin 4.0 g/dL (3.0-4.8) 12/20/17 03:35 Globulin 3.2 gm/dL 12/20/17 03:35 Albumin/Globulin Ratio 1.3 (1.1-1.8) 12/20/17 03:35 Triglycerides 276 mg/dL (35-160) H 12/20/17 03:35 Cholesterol 209 mg/dL (130-200) H 12/20/17 03:35 LDL Cholesterol Direct 104 mg/dL (0-129) 12/20/17 03:35 HDL Cholesterol 38 mg/dL (29-60) 12/20/17 03:35 Lipase 104 U/L (23-300) 12/19/17 14:45 Free T4 1.09 ng/dL (0.78-2.19) 12/19/17 14:45 Total T3 1.15 ng/mL (0.97-1.69) 12/19/17 14:45 TSH 3rd Generation 1.47 mIU/mL (0.46-4.68) 12/19/17 14:45 Discharge Exam - Head Exam Head Exam: NORMAL INSPECTION Discharge Plan - Discharge Medications Prescriptions: Aspirin [Ecotrin] 81 mg PO DAILY #14 tabec Metoprolol Tartrate [Lopressor] 25 mg PO BID #28 tab - Follow Up Plan Condition: GOOD Disposition: HOME/ ROUTINE Instructions: Aspirin, Hydrochlorothiazide, Metoprolol Additional Instructions: Please follow up with your primary care doctor, Dr. Lee, within 3-5 days of discharge. Please discuss all medical issues addressed and any new medications that you have been started on during this admission. Please follow up with the steel wheel engraver that saw you during this admission, Dr. Voss, within one week of discharge. You will need to have a stress test done with him as an outpatient. Any questions regarding this can be addressed with Dr. Voss's office. He recommended an echocardiogram, ultrasound of your heart, during your admission. Should you have any abnormal findings on this study, you will be contacted. If you are not contacted, please discuss the findings of this at your appointment with Dr. Voss. His contact information has been provided in this paperwork. You have been started on two new medications as follows: 1. Aspirin 81mg (antiplatelet medication that helps prevent heart attacks and strokes): Please take one tablet daily 2. Metoprolol 25mg (blood pressure/heart rate control medication): Please take one tablet two times per day Please be aware that you are being given two weeks of these medications and will need to have them refilled by either your primary care doctor, Dr. Lee, or your steel wheel engraver, Dr. Voss, BEFORE you run out of these medications. Since you have been started on a medication that will help control your blood pressure (Metoprolol), we recommend that you stop taking your hydrochlorothiazide every day until you can discuss the need for taking both of these medications simultaneously with your primary care doctor or your steel wheel engraver, Dr. Voss. Check your blood pressure every day 15 minutes before and after taking your two daily doses of Metoprolol. If your blood pressure is above 150/90mmHg AFTER taking Metoprolol, you may take one dose of your hydrochl orothiazide as well. Should your symptoms return, please seek emergency medical attention immediately. Referrals: Nikki Voss MD [Staff Provider] - Salena Solorzano MD [Family Provider] -
--- NOTE | 2017-12-20 18:55 | CARD ---
APPROVED REPORT Date of service: 12/20/2017 EXAM: Two-dimensional and M-mode echocardiogram with Doppler and color Doppler. INDICATION PALPS 2D DIMENSIONS IVSd0.8 (0.7-1.1cm)LVDd3.5 (3.9-5.9cm) PWd0.9 (0.7-1.1cm)LVDs2.5 (2.5-4.0cm) FS (%) 28.8 %LVEF (%)56.4 (>50%) M-Mode DIMENSIONS Left Atrium (MM)3.40 (2.5-4.0cm)Aortic Root2.30 (2.2-3.7cm) Aortic Cusp Exc.1.60 (1.5-2.0cm) Aortic Valve AoV Peak Cxgxnsht108.0cm/[place] Peak GR.10mmHg Mitral Valve MV E Umetrgba98.6cm/sMV A Sdnmvgmw67.6cm/sE/A ratio0.9 TDI Lateral E' Peak V8.58cm/sMedial E' Peak V8.09cm/sE/Lateral E'7.6 E/Medial E'8.1 Tricuspid Valve TR Peak Wapwfczb612ld/sRAP [id number] Peak Gr.17mmHg [id number] LEFT VENTRICLE The left ventricle is normal size. There is normal left ventricular wall thickness. The left ventricular function is normal.EF-55-60% There is normal LV segmental wall motion. Transmitral Doppler flow pattern is Grade III-reversible restrictive diastolic dysfunction. No left ventricle thrombus noted on this study. There is no ventricular septal defect visualized. There is no left ventricular aneurysm. There is no mass noted in the left ventricle. RIGHT VENTRICLE The right ventricle is normal size. There is normal right ventricular wall thickness. The right ventricular systolic function is normal. ATRIA The left atrium size is normal. The right atrium size is normal. The interatrial septum is intact with no evidence for an atrial septal defect. AORTIC VALVE The aortic valve is thickened but opens well. No aortic regurgitation is present. There is no aortic valvular stenosis. There is no aortic valvular vegetation. MITRAL VALVE The mitral valve is thickened but opens well. Mitral regurgitation is trace. There is no mitral valve stenosis. There is no evidence of mitral valve prolapse. TRICUSPID VALVE The tricuspid valve leaflets are thickened , but open well. There is trace tricuspid regurgitation.RVSP-27 mmof Hg There is no tricuspid valve stenosis. There is no tricuspid valve prolapse or vegetation. PULMONIC VALVE The pulmonary valve is normal in structure. There is no pulmonic valvular regurgitation. There is no pulmonic valvular stenosis. GREAT VESSELS The aortic root is normal in size. The ascending aorta is normal in size. The pulmonary artery is normal. The IVC is normal in size and collapses >50% with inspiration. PERICARDIAL EFFUSION There is no pleural effusion. Trivial pericardial effusion. <Conclusion> The left ventricle is normal size. There is normal left ventricular wall thickness. The left ventricular function is normal.EF-55-60% Mitral regurgitation is trace. There is trace tricuspid regurgitation.RVSP-27 mmof Hg Trivial pericardial effusion.
== END 2017-12-20 16:19 | disposition home or self-care (01) ==
LOC: ED 12:45 → ERH 16:34 → 3RSO 17:48
PROVIDERS: ADMIT Hospitalist; ATTEND Hospitalist
DX: R00.2 Palpitations (principal); R00.0 Tachycardia, unspecified; R07.89 Other chest pain; I10 Essential (primary) hypertension; G43.909 Migraine, unspecified, not intractable, without status migrainosus; E78.5 Hyperlipidemia, unspecified; M19.90 Unspecified osteoarthritis, unspecified site; G47.00 Insomnia, unspecified
CPT/HCPCS: 36415; 71046; 80053; 80061; 83690; 83735; 83880; 84100; 84439; 84443; 84480; 84484; 85025; 85027; 85378; 93005; 93306; 99285; G0378

== ENCOUNTER 2018-07-01 07:52 | Outpatient (CLI) | payer MEDICARE | END 2018-07-01 07:53 | disposition home or self-care (01) | LOC: CARDIO 07:52 | DX: R07.89 Other chest pain (principal); I10 Essential (primary) hypertension ==